=== PATIENT | female | born 2000 | race Caucasian/White ===

== ENCOUNTER 2021-03-26 16:40 | Emergency (ER) | payer OTHER ==
[~2021-03-26 16:40] MED LIST: BACTRIM DS TAB1 EACH PO; IBUPROFEN600 MG PO; KEFLEX500 MG PO
[2021-03-26 18:32] LABS: HEMOGLOBIN 12.8 gm/dl (12.3-15.3); RED BLOOD COUNT 4.35 M/UL (4.00-5.10); WHITE BLOOD COUNT 10.3 K/UL (4.5-11.0)
[2021-03-26 18:48] LABS: BUN/CREATININE RATIO 15 (0-10)
[2021-03-26] MEDS ORDERED: OMNICEF 300 MG300 MG PO (20:57)
[2021-03-26] MEDS ORDERED: IBUPROFEN600 MG PO (20:57)
[2021-03-26] MEDS ORDERED: ZOFRAN ODT 4 MG4 MG SL (20:57)
== END 2021-03-26 21:15 | disposition home or self-care (01) ==
LOC: ER1 16:40
PROVIDERS: Emergency Medicine
DX: N12 Tubulo-interstitial nephritis, not specified as acute or chronic (principal); Z88.0 Allergy status to penicillin; Z20.822 Contact with and (suspected) exposure to COVID-19
CPT/HCPCS: 0240U; 80053; 80307; 81001; 83605; 83690; 84703; 85025; 87040; 87077; 87086; 87186; 96374; 96375; 99284; J0696; J1885; J7030